=== PATIENT | female | born 1950 | race Caucasian/White ===

== ENCOUNTER → 2017-12-11 | Outpatient (CLI) | payer MEDICARE, OTHER | END | disposition home or self-care (01) | LOC: KCIC MRI 15:22 | DX: S43.491A Other sprain of right shoulder joint, initial encounter (principal); M19.011 Primary osteoarthritis, right shoulder; M75.111 Incomplete rotator cuff tear or rupture of right shoulder, not specified as traumatic; M25.411 Effusion, right shoulder; X58.XXXA Exposure to other specified factors, initial encounter; Y93.89 Activity, other specified; Y92.89 Other specified places as the place of occurrence of the external cause; Y99.8 Other external cause status | CPT/HCPCS: 73221 ==

== ENCOUNTER → 2018-02-05 | Outpatient (CLI) | payer MEDICARE, OTHER | END | disposition home or self-care (01) | LOC: KCIC MRI 16:05 | DX: M48.061 Spinal stenosis, lumbar region without neurogenic claudication (principal); M51.36 Other intervertebral disc degeneration, lumbar region | CPT/HCPCS: 72148 ==

== ENCOUNTER → 2019-09-21 | Outpatient (CLI) | payer MEDICARE, OTHER ==
[~2019-09-21] MED LIST: DABI75CA3 PO; METF100P4 MC; METO-239 PO
--- NOTE | 2019-09-21 16:02 | KCIC ---
EXAM: MRI RIGHT KNEE DATE: 09/21/2019 1:15 PM CLINICAL INDICATION: Right knee pain, limited range of motion. COMPARISON: None. TECHNIQUE: Multiplanar, multisequence MRI of the right knee was performed without contrast. FINDINGS: This examination as the dedicated knee coil could not be used and large [id number] imaging was obtained, degraded by motion artifact. Small right knee joint effusion. Suspected joint body posterior joint line. Trace Aaron's cyst. The ACL and PCL are not convincingly seen, the integrity of these ligaments cannot be reliably assessed. Severe right knee joint osteoarthritis with chondral effacement medial compartment and tricompartmental osteophytes. Diffuse medial meniscal degeneration/maceration with associated extrusion of the body segment measuring 5 mm. Oblique tear of the posterior horn lateral meniscus with free edge blunting. Increased signal and thickening of the MCL, likely reactive from adjacent meniscal tear and degenerative change. The fibular collateral ligament, biceps femoris and IT band are intact. Borderline lateral patellar tracking. T1 marrow signal is grossly preserved. No evidence for fracture or osteonecrosis. IMPRESSION: 1. No evidence for acute fracture of the right knee 2. Small right knee joint effusion. Trace right Aaron's cyst 3. Advanced right knee joint osteoarthritis with medial compartment chondral effacement and bulky tricompartmental osteophytes. 4. Degenerative type tear medial meniscus. Complex tear posterior horn-body lateral meniscus 5. The cruciates are not well assessed, likely limitations of technique. Electronically signed by: Parag Rodriguez MD (09/21/2019 3:59 PM) [id number]
== END | disposition home or self-care (01) ==
LOC: KCIC MRI 13:11
PROVIDERS: ATTEND Internal Medicine
DX: S83.271A Complex tear of lateral meniscus, current injury, right knee, initial encounter (principal); S83.241A Other tear of medial meniscus, current injury, right knee, initial encounter; M17.11 Unilateral primary osteoarthritis, right knee; M25.461 Effusion, right knee; M25.761 Osteophyte, right knee; X58.XXXA Exposure to other specified factors, initial encounter; Y93.89 Activity, other specified; Y92.89 Other specified places as the place of occurrence of the external cause; Y99.8 Other external cause status
CPT/HCPCS: 73721

== ENCOUNTER → 2021-04-02 | Outpatient (CLI) | payer MEDICARE, OTHER ==
--- NOTE | 2021-04-02 17:48 | KCIC ---
MRI of the lumbar spine without contrast 04/02/2021 CLINICAL HISTORY: Chronic low back pain. Bilateral leg weakness. Lumbar stenosis. TECHNIQUE: Unenhanced T1-weighted and T2-weighted sagittal and axial and inversion recovery sagittal images of the lumbar spine were obtained. FINDINGS: Comparison study is dated 02/05/2018. Very mild S-shaped curvature of the thoracolumbar spine is seen. Mild anterolisthesis of L4 in relati on L5 is noted. Degenerative signal changes and varying degrees of loss of height are seen involving all the disks of the lower thoracic and throughout the lumbar spine. Degenerative signal changes are seen within the marrow surrounding these discs. The conus medullaris is normal morphology, position a nd signal characteristics. A 2.4 cm rounded high signal intensity lesion is seen projecting medially from the mid/lower pole of the left kidney on the T2-weighted images. This likely represents a cyst. No further imaging evaluation is recommended. At the T10-11 disc space there is a moderate generalized disc bulge. Degenerative changes are seen in volving the facet joints bilaterally. These findings efface the anterior and posterior CSF resulting in mild central spinal canal stenosis without evidence of cord impingement. Mild bilateral neural for aminal stenosis is seen. T11-12 disc space there is a mild generalized disc bulge. Degenerative changes are seen involving the facet joints bilaterally. These findings when combined do not result in significant central spinal c anal or neural foraminal stenosis. At the T12-L1 disc space there is a mild to moderate generalized disc bulge. This is eccentric to the right. Degenerative changes are seen involving the facet joints bilaterally. These findings do not r esult in significant central spinal canal stenosis. Mild right neural foraminal stenosis is seen. The left neural foramen is patent. At the L1-2 disc space is a moderate generalized disc bulge. Degenerative changes are seen involving the facet joints bilaterally. There is moderate ligamentum flavum hypertrophy bilaterally. There are small to moderate-sized facet joint effusions bilaterally. These findings when combined result in mod erate to severe central spinal canal stenosis. Mild bilateral neural foraminal stenosis is seen. At the L2-3 disc space there is a moderate generalized disc bulge. Superimposed on this disc bulge is a central/left paracentral focal disc herniation. This extrudes inferiorly and laterally to the left .. The extruded disc fragment measures 1.4 x 0.9 x 0.6 cm in craniocaudal, transverse and AP dimensio ns. Degenerative changes are seen involving the facet joints bilaterally. There is moderate ligamentu m flavum hypertrophy bilaterally. These findings when combined result in severe left greater than rig ht central spinal canal stenosis. Mild bilateral neural foraminal stenosis is seen. The extruded disc fragment results in severe left lateral recess stenosis extending to the mid left L3 level. At the L3-4 disc space there is a moderate generalized disc bulge. This is eccentric to the left. Deg enerative changes are seen involving the facet joints bilaterally. There is moderate ligamentum flavu m hypertrophy bilaterally. These findings when combined result in severe spinal canal stenosis. Mild to moderate left greater than right neural foraminal stenosis is seen. At the L4-5 disc space there is a moderate generalized disc bulge. Degenerative changes are seen invo lving the facet joints bilaterally. There is moderate ligamentum flavum hypertrophy bilaterally. Thes e findings when findings results in severe central spinal canal stenosis. Mild bilateral neural waqas inal stenosis is seen. At the L5-S1 disc space there is a mild to moderate generalized disc bulge. This is eccentric to the left. Degenerative changes are seen involving the facet joints bilaterally. There is mild ligamentum flavum hypertrophy bilaterally. These findings when combined result in mild central spinal canal sten osis mild to moderate left greater than right neural foraminal stenosis is seen. The degenerative changes have progressed slightly since the previous examination. IMPRESSION: The changes of degenerative disc disease are seen involving lower thoracic and throughout the lumbar spine. These findings results in multilevel central spinal canal or neural foraminal sten osis of varying severity as discussed above. Electronically signed by: Obed Newman MD (04/02/2021 5:45 PM) [id number]
== END ==
LOC: KCIC MRI 13:18
PROVIDERS: ATTEND Internal Medicine
DX: M47.817 Spondylosis without myelopathy or radiculopathy, lumbosacral region (principal); M51.35 Other intervertebral disc degeneration, thoracolumbar region; M48.07 Spinal stenosis, lumbosacral region
CPT/HCPCS: 72148